=== PATIENT | male | born 1985 | race African-American/Black ===

== ENCOUNTER 2016-12-31 11:06 | Observation (INO) | payer MEDICARE, OTHER ==
[~2016-12-31 11:06] MED LIST: AMLO10 PO; APIX2.5T PO; BUTA1CAP PO; CEPH-460 PO; FERR325T PO; NEPHRO PO; SENS60TA PO
[2016-12-31 11:08] VITALS: BP 174/100; PULSE 93; RESP 15; TEMP 98.2; O2SAT 96
[2016-12-31 15:20] VITALS: BP 166/85; PULSE 82; RESP 18; O2SAT 99
[2016-12-31] MEDS ORDERED: SEVEL800 PO (15:39)
[2016-12-31 15:51] LABS: AUTOMATED NEUTROPHIL # 3.3 TH/MM3 (1.8-7.7); BASOPHIL % 0.9 % (0.0-2.0); EOSINOPHIL # 0.1 TH/MM3 (0-0.4); EOSINOPHIL % 3.2 % (0.0-4.0); HEMO FLAGS DIFF FINAL; LYMPH % 13.2 % (9.0-44.0); LYMPHOCYTE # 0.6 TH/MM3 (1.0-4.8); MEAN CELL VOLUME 91.1 FL (80.0-100.0); MEAN CORPUSCULAR HEMOGLOBIN 29.2 PG (27.0-34.0); MONO % 8.9 % (0.0-8.0); NEUT % 73.8 % (16.0-70.0); PLATELET COUNT 152 TH/MM3 (150-450); RED BLOOD COUNT 3.19 MIL/MM3 (4.50-5.90); WHITE BLOOD COUNT 4.5 TH/MM3 (4.0-11.0)
--- NOTE | 2016-12-31 15:55 | PD ---
HPI Chief Complaint: Chest Pain Time Seen by Provider: 15:47 Travel History International Travel<30 days: No Contact w/Intl Traveler<30days: No Traveled to known affect area: No History of Present Illness HPI 31-year-old male that presents to the ED for evaluation of left-sided chest pain and fluid overload. Per patient he has a history of kidney failure with dialysis on Tuesdays, , Saturdays. Per patient he has not had dialysis since last Friday. Per patient he recently moved to a new apartment and he states that he couldn't make it to his appointments. Per patient he didn 't mention to the dialysis Center that he was having some swelling on his left rest as well as his left arm for concerning and he was told to come to the ED at that time. Per patient he didn't seek any help or treatment for this as he again was moving and he tells me that he was too busy to get evaluated secondary to moving to a new place. He reports that the pain on the left chest is mainly on the area of swelling. Per patient his left breast this "bigger than his 's ". Per patient he also was swelling on the left arm. He states that the pain gets worse when he touches as well as when he takes a deep breath. Per patient he feels a little bit short of breath especially when he lays down flat. He denies any fevers chills or sweats. No recent surgery. He has a fistula that appears to be working on his left arm. He states that his pain is 8 out of 10. He denies any abdominal pain. He is not able to urinate. No bowel movement issues. Multiple allergies to medication. Patient's tells me that his as well as the dialysis Center want him to be admitted. Patient follows with Dr. Bay's successor as apparently Dr. Bay no longer works. All the pain is to the left chest. PFSH Past Medical History Hx Anticoagulant Therapy: Yes Asthma: No Autoimmune Disease: No Anxiety: No Depression: No Heart Rhythm Problems: No Cancer: No Cardiac Catheterization: No Cardiovascular Problems: Yes High Cholesterol: No Chemotherapy: No Chest Pain: Yes Congestive Heart Failure: No COPD: No Diabetes: No Dialysis: Yes Diminished Hearing: No Endocrine: No Genitourinary: Yes Hepatitis: No Hiatal Hernia: Yes Hypertension: Yes Immune Disorder: No Musculoskeletal: No Neurologic: No Psychiatric: No Reproductive: No Respiratory: Yes Radiation Therapy: No Renal Failure: Yes Sickle Cell Disease: No Thyroid Disease: No Tetanus Vaccination: < 5 Years Influenza Vaccination: Yes Past Surgical History Abdominal Surgery: Yes (HERNIA REPAIR WITH MESH LEFT AND RIGHT (2) SURG) AICD: No Arteriovenous Shunt: No Coronary Artery Bypass Graft: No Genitourinary Surgery: Yes (HERNIA REPAIR) Insulin Pump: No Joint Replacement: No Pacemaker: No Other Surgery: Yes (hx of av fistula x5) Family History Family Myocardial Infarction: Yes (GRANDMOTHER) Social History Alcohol Use: Yes (RARELY) Tobacco Use: Yes (SOCIALLY - EVERY COUPLE OF WEEKS) Substance Use: No Allergies-Medications (Allergen,Severity, Reaction): Coded Allergies: Cipro (Verified Allergy, Severe, HIVES, 12/31/16) Kiwi (Verified Allergy, Severe, hives and scratchy throat, 12/31/16) Tramadol (Verified Allergy, Intermediate, RASH, 12/31/16) Morphine (Verified Allergy, Unknown, Itching, AGITATION, 12/31/16) Levaquin (Verified Adverse Reaction, Severe, COLD-LIKE SYMPTOMS, 12/31/16) Tomato (Verified Adverse Reaction, Severe, COLD-LIKE SYMPTOMS, 12/31/16) Reported Meds & Prescriptions Reported Meds & Active Scripts Active Reported Renvela (Sevelamer Carbonate) 800 Mg Tab 800 Mg PO TID Take with meals Nephro-Akshat Rx (Vitamin B Cmplx/Vit C/Folic AC) 1 Tab 1 Tab PO DAILY Ferrous Sulfate 325 Mg Tab 325 Mg PO DAILY Sensipar (Cinacalcet) 60 Mg Tab 60 Mg PO DAILY Eliquis (Apixaban) 2.5 Mg Tab 2.5 Mg PO BID Fioricet (Wltnapswac-Bapuddcbbkfdd-Vgylkgao) 50-300-40 Mg Cap 1 Cap PO Q6HR PRN Norvasc (Amlodipine Besylate) 10 Mg Tab 10 Mg PO DAILY Review of Systems General / Constitutional: No: Fever, Chills, Weight Gain, Weight Loss, Other Eyes: No: Diploplia, Blurred Vision, Photophobia, Drainage, Redness, Foreign Body Sensation, Pain, Tearing, Blind Spots, Visual changes, Blindness, Other HENT: No: Headaches, Vertigo, Lightheadedness, Sore Throat, Rhinitis, Rhinorrhea, Congestion, Nosebleed, Neck Stiffness, Neck Pain, Masses, Gingival Bleeding, Dental Difficulties, Ear Discharge, Earache, Other Cardiovascular: Positive: Chest Pain or Discomfort, Edema, No: Palpitations, Irregular Rhythm, Tachycardia, Diaphoresis, Syncope, Dyspnea on exertion, Varicosities, Cyanosis, Varicosities, Phlebitis, Claudication, Other Respiratory: Positive: Shortness of Breath, No: Cough, Wheezing, Sneezing, Orthopnea, Hemoptysis, Stridor, Night Sweats, Pleuritic Pain, Other Gastrointestinal: No: Nausea, Vomiting, Diarrhea, Abdominal Pain, Hematemesis, Hematochezia, Constipation, Changes in Bowel Habits, Indigestion, Dysphagia, Loss of Appetite, Other Genitourinary: No: Urgency, Frequency, Dysuria, Nocturia, Hematuria, Decreased Urinary Output, Oliguria, Hesitancy, Dribbling, Incontinence, Pelvic Pain, Flank Pain, Dyspareunia, Discharge, Dysmenorrhea, Menorrhagia, Metorrhagia, Vaginal Bleeding, Other Musculoskeletal: Positive: Edema, No: Myalgias, Arthralgias, Limited ROM, Weakness, Cramping, Pain, Atrophy, Other Skin: No Rash, No Itching, No Dryness, No Lumps, No Hives, No Change in Pigmentation, No Change in nails, No Alopecia, No Lesions, No Breast Lumps, No Breast Tenderness, No Breast Swelling, No Other Neurologic: No: Weakness, Dizziness, Syncope, Focal Abnormalities, Coordination Problem, Tremor, Ataxia, Headache, Change in Mentation, Slurred Speech, Paresthesia, Incontinence, Seizures, Sensory Disturbance, Other Psychiatric: No: Anxiety, Depression, Suicidal Ideations, Disorder of Thought, Mood Disorder, Substance Abuse, Homicidal Ideation, Other Endocrine: No: Heat Intolerance, Cold Intolerance, Polyuria, Polydipsia, Other Hematologic/Lymphatic: No: Easy Bruising, Lymph Node Enlargement, Other Physical Exam Narrative GENERAL: SKIN: Warm and dry. HEAD: Atraumatic. Normocephalic. EYES: Pupils equal and round. No scleral icterus. No injection or drainage. ENT: No nasal bleeding or discharge. Mucous membranes pink and moist. Tongue is midline. No blood deviation. NECK: Trachea midline. No JVD. CARDIOVASCULAR: Regular rate and rhythm. No murmurs, S3, S4. RESPIRATORY: No accessory muscle use. Clear to auscultation. Breath sounds equal bilaterally. GASTROINTESTINAL: Abdomen soft, non-tender, nondistended. Hepatic and splenic margins not palpable. MUSCULOSKELETAL: Extremities without clubbing, cyanosis, or edema. No obvious deformities. Full range of motion of the upper and lower extremities bilaterally. Patient does have a fistula to the left arm with a thrill noted. Patient does have very significant edema to the left breast. Very tender to touch especially on the inferior part of the breast but no sign of erythema or purulence. This appears to be more fluid overload. Patient does have 2+ pulses in the upper and lower extremities bilaterally. No lumbar, thoracic, cervical spine tenderness to palpation. NEUROLOGICAL: Awake and alert. No obvious cranial nerve deficits. Motor grossly within normal limits. Five out of 5 muscle strength in the arms and legs. Normal speech. PSYCHIATRIC: Appropriate mood and affect; insight and judgment normal. Data Data Last Documented VS Vital Signs Date Time Temp Pulse Resp B/P Pulse Ox O2 Delivery O2 Flow Rate FiO2 12/31/16 15:20 82 18 166/85 99 Room Air 12/31/16 11:08 98.2 Orders Electrocardiogram (12/31/16 12:10) Electrocardiogram (12/31/16 15:09) Complete Blood Count With Diff (12/31/16 15:09) Comprehensive Metabolic Panel (12/31/16 15:09) Ckmb (Isoenzyme) Profile (12/31/16 15:09) Troponin I (12/31/16 15:09) Prothrombin Time / Inr (Pt) (12/31/16 15:09) Act Partial Throm Time (Ptt) (12/31/16 15:09) Magnesium (Mg) (12/31/16 15:09) Thyroid Stimulating Hormone (12/31/16 15:09) Chest, Single Ap (12/31/16 15:09) Iv Access Insert/Monitor (12/31/16 15:09) Ecg Monitoring (12/31/16 15:09) Oximetry (12/31/16 15:09) Us Arm Venous Doppler (12/31/16 ) Us Breast Unilateral (12/31/16 ) Lactic Acid (12/31/16 16:24) Blood Culture (12/31/16 16:24) Ct Thorax/ Chest W Iv Contrast (12/31/16 ) CKMB (12/31/16 15:25) CKMB% (12/31/16 15:25) Iohexol 350 Inj (Omnipaque 350 Inj) (12/31/16 17:18) Diet Renal (12/31/16 Dinner) Admit Order (Ed Use Only) (12/31/16 18:21) Amlodipine (Norvasc) (01/01/17 09:00) Apixaban (Eliquis) (12/31/16 21:00) Ferrous Sulfate (Ferrous Sulfate) (01/01/17 09:00) Sevelamer (Renvela) (01/01/17 09:00) Vitamin B Cmplx-Vit C-Folic Ac (Nephroca (01/01/17 09:00) (Nf) Eyyxjikgmi-Exxxyeyjndwny-Gehzbucn ( (12/31/16 18:30) (Nf) Cinacalcet (Sensipar) (01/01/17 09:00) Consult Nephrology (12/31/16 ) Labs Laboratory Tests Test 12/31/16 12/31/16 15:25 16:47 White Blood Count 4.5 TH/MM3 Red Blood Count 3.19 MIL/MM3 Hemoglobin 9.3 GM/DL Hematocrit 29.0 % Mean Corpuscular Volume 91.1 FL Mean Corpuscular Hemoglobin 29.2 PG Mean Corpuscular Hemoglobin 32.0 % Concent Red Cell Distribution Width 16.0 % Platelet Count 152 TH/MM3 Mean Platelet Volume 9.3 FL Neutrophils (%) (Auto) 73.8 % Lymphocytes (%) (Auto) 13.2 % Monocytes (%) (Auto) 8.9 % Eosinophils (%) (Auto) 3.2 % Basophils (%) (Auto) 0.9 % Neutrophils # (Auto) 3.3 TH/MM3 Lymphocytes # (Auto) 0.6 TH/MM3 Monocytes # (Auto) 0.4 TH/MM3 Eosinophils # (Auto) 0.1 TH/MM3 Basophils # (Auto) 0.0 TH/MM3 CBC Comment DIFF FINAL Differential Comment Prothrombin Time 10.7 SEC Prothromb Time International 1.0 RATIO Ratio Activated Partial 26.8 SEC Thromboplast Time Sodium Level 141 MEQ/L Potassium Level 4.5 MEQ/L Chloride Level 101 MEQ/L Carbon Dioxide Level 28.5 MEQ/L Anion Gap 12 MEQ/L Blood Urea Nitrogen 34 MG/DL Creatinine 13.58 MG/DL Estimat Glomerular Filtration 5 ML/MIN Rate Random Glucose 91 MG/DL Calcium Level 8.2 MG/DL Magnesium Level 2.6 MG/DL Total Bilirubin 0.5 MG/DL Aspartate Amino Transf 12 U/L (AST/SGOT) Alanine Aminotransferase 18 U/L (ALT/SGPT) Alkaline Phosphatase 133 U/L Total Creatine Kinase 393 U/L Creatine Kinase MB 1.8 NG/ML Creatine Kinase MB % 0.5 % Troponin I 0.03 NG/ML Total Protein 7.0 GM/DL Albumin 3.6 GM/DL Thyroid Stimulating Hormone 0.778 uIU/ML 3rd Gen Lactic Acid Level 0.7 mmol/L MDM Medical Decision Making Medical Screen Exam Complete: Yes Emergency Medical Condition: Yes Medical Record Reviewed: Yes Interpretation(s) CBC & BMP Diagram 12/31/16 15:25 Last Impressions Chest X-Ray 12/31/16 1509 Signed Impressions: Service Date/Time: Saturday, December 31, 2016 15:15 - CONCLUSION: No acute cardiopulmonary disease identified. Elias Lizarraga MD Upper Extremity Ultrasound 12/31/16 0000 Signed Impressions: Service Date/Time: Saturday, December 31, 2016 15:42 - CONCLUSION: 1. Stable examination with nonocclusive thrombus in the left internal jugular vein. 2. Patent AV fistula. 3. Diffuse arm swelling. Tanmay Evans MD Chest CT 12/31/16 0000 Signed Impressions: Service Date/Time: Saturday, December 31, 2016 17:01 - CONCLUSION: 1. Extensive subcutaneous varicosities in the right chest which appear to bypass the axillary and right subclavian veins and eventually drain into the mediastinal venous system. 2. Similarly, stranding in the subcutaneous tissues over the left chest. Again, this could be related to the venous system. 3. Isolated granulomatous type calcification in the superior segment right lower lobe. Minimal bibasilar atelectatic changes. No confluent infiltrate. Tanmay Evans MD Breast Ultrasound 12/31/16 0000 Signed Impressions: Service Date/Time: Saturday, December 31, 2016 16:00 - CONCLUSION: Diffuse edema and likely gynecomastia. No defined abscess identified. Multiple prominent superficial blood vessels. Elias Lizarraga MD Coags WNL LFTs slightly elevated troponin and CKMB negative Differential Diagnosis Fluid overload versus chest pain versus DVT versus kidney disease versus noncompliance versus abscess Narrative Course 31-year-old male that presents to the ED for evaluation of fluid overload and left chest pain. Patient was properly examined and was found to have signs and symptoms which appear to be more consistent with fluid overload secondary to noncompliance with dialysis. Possible infection possible secondary to previous I&D of left breast from abscess formation but is appears to be at this time more related to edema secondary to noncompliance with dialysis. Patient will be checked for blood clots is most of his swelling is only on the left upper extremity as well as the left chest. Case was discussed in my attending Dr. Peters evaluated the patient with me and agrees with plan. Ultrasounds, labs , imaging were ordered. Labs and imaging showed fluid on the left breast but no sign of acute infection or deformity. He does appear to have a lot of venous insufficiency . Case was discussed with from nephrology who agrees to do dialysis today. Wants patient admitted to medicine. Patient was admitted to Dr Wilcox who agreed to admission. Diagnosis Primary Impression: ESRD on dialysis Additional Impression: Left breast mass Admitting Information Admitting Physician Requests: Observation Miki Cooepr Dec 31, 2016 15:55
--- NOTE | 2016-12-31 15:56 | RADRPT ---
EXAM DATE/TIME: 12/31/2016 15:15 [facility] COMPARISON: CHEST SINGLE AP, August 30, 2016, 11:53. INDICATIONS : Chest pain and left breast swelling. MEDICAL HISTORY : Hypertension. Sleep apnea. Hernia, hiatal. Chest pain. Dyspnea. Renal disease. SURGICAL HISTORY : Hernia repair with mesh, left and right. Dialysis. AV fistula. ENCOUNTER: Initial ACUITY: 1 week PAIN SCORE: 9/10 LOCATION: Bilateral chest FINDINGS: Single AP view of the chest. The lungs are clear. Cardiomediastinal silhouette within normal limits. No evidence of pleural effusion or pneumothorax. CONCLUSION: No acute cardiopulmonary disease identified. Elias Lizarraga MD on December 31, 2016 at 15:52 Board Certified Radiologist. This report was verified electronically.
[2016-12-31 16:12] LABS: ANION GAP 12 MEQ/L (5-15); AST (GOT) 12 U/L (15-37); BICARBONATE 28.5 MEQ/L (21.0-32.0); BLOOD UREA NITROGEN 34 MG/DL (7-18); CHLORIDE 101 MEQ/L (98-107); GLOMERULAR FILTRATION RATE 5 ML/MIN (>89); MAGNESIUM 2.6 MG/DL (1.5-2.5); POTASSIUM 4.5 MEQ/L (3.5-5.1); SODIUM (NA) 141 MEQ/L (136-145)
[2016-12-31 16:16] LABS: APTT (PATIENT) 26.8 SEC (24.3-30.1); PROTHROMBIN TIME - PATIENT 10.7 SEC (9.8-11.6)
--- NOTE | 2016-12-31 16:21 | RADRPT ---
EXAM DATE/TIME: 12/31/2016 15:42 [facility] COMPARISON: US ARM LEFT VENOUS DOPPLER, August 30, 2016, 13:07. INDICATIONS : Left arm swelling and pain. MEDICAL HISTORY : Hypertension. Chest pain. Sleep apnea. Bronchitis. Dyspnea. Hiatal hernia. Renal disease and failur e. Clotting problems. Anticoagulant therapy. SURGICAL HISTORY : Hernia repair with mesh left and right (2) surgery. Dialysis. AV fistula. ENCOUNTER: Subsequent ACUITY: 1 week PAIN SCORE: 3/10 LOCATION: Left arm. FINDINGS: Patient has a surgical AVF in the left upper extremity which appears to be patent. As seen previously , nonocclusive thrombus in the left internal jugular vein. Cephalic vein is fully compressible. Trifu rcation tributaries appeared to be patent. Diffuse subcutaneous edema throughout the left upper extre mity. CONCLUSION: 1. Stable examination with nonocclusive thrombus in the left internal jugular vein. 2. Patent AV fistula. 3. Diffuse arm swelling. Tanmay Evans MD on December 31, 2016 at 16:16 Board Certified Radiologist. This report was verified electronically.
[2016-12-31 16:24] LABS: ALKALINE PHOSPHATASE 133 U/L (45-117); ALT (GPT) 18 U/L (12-78); CREATINE KINASE 393 U/L (39-308); TOTAL BILIRUBIN ADULT 0.5 MG/DL (0.2-1.0)
--- NOTE | 2016-12-31 16:38 | RADRPT ---
EXAM DATE/TIME: 12/31/2016 16:00 [facility] COMPARISON: CT PULMONARY ANGIOGRAM, July 27, 2016, 14:29. US BREAST LEFT, August 30, 2016, 13:03. INDICATIONS : Left breast swelling, abscess. MEDICAL HISTORY : Hypertension. Chest pain. Sleep apnea. Bronchitis. Dyspnea. Hiatal hernia. Renal disease and fail ure. Clotting problems. Anticoagulant therapy. SURGICAL HISTORY : Hernia repair with mesh left and right (2) surgery. Dialysis. AV fistula. ENCOUNTER: Subsequent ACUITY: 1 week PAIN SCORE: 3/10 LOCATION: Left breast. FINDINGS: Focus sonographic examination of the left breast was performed in the region of swelling. There is ev idence of diffuse edema. Flame shaped hypodensity in the subareolar region suggests gynecomastia. Mul tiple prominent superficial veins likely represent varices. No rounded organized fluid collection kaylie ntified. Appearance is very similar to the prior ultrasound of July 2016. CONCLUSION: Diffuse edema and likely gynecomastia. No defined abscess identified. Multiple prominent superficial blood vessels. Elias Lizarraga MD on December 31, 2016 at 16:31 Board Certified Radiologist. This report was verified electronically.
[2016-12-31 16:44] LABS: CKMB 1.8 NG/ML (0.5-3.6)
--- NOTE | 2016-12-31 16:53 | PD ---
Physical Exam Date Seen by Provider: Dec 31, 2016 Time Seen by Provider: 16:00 Narrative 31-year-old male with unfortunate history of end-stage renal disease, dialysis dependent, who presents today with complaints of left sided breast swelling and edema to the left arm. The patient states he missed his dialysis today. He is scheduled to have dialysis today and last had dialysis was Friday. He reports that he's had worsening swelling of his less breast over the last several days. Data Data Last Documented VS Vital Signs Date Time Temp Pulse Resp B/P Pulse Ox O2 Delivery O2 Flow Rate FiO2 12/31/16 15:20 82 18 166/85 99 Room Air 12/31/16 11:08 98.2 Orders Electrocardiogram (12/31/16 12:10) Electrocardiogram (12/31/16 15:09) Complete Blood Count With Diff (12/31/16 15:09) Comprehensive Metabolic Panel (12/31/16 15:09) Ckmb (Isoenzyme) Profile (12/31/16 15:09) Troponin I (12/31/16 15:09) Prothrombin Time / Inr (Pt) (12/31/16 15:09) Act Partial Throm Time (Ptt) (12/31/16 15:09) Magnesium (Mg) (12/31/16 15:09) Thyroid Stimulating Hormone (12/31/16 15:09) Chest, Single Ap (12/31/16 15:09) Iv Access Insert/Monitor (12/31/16 15:09) Ecg Monitoring (12/31/16 15:09) Oximetry (12/31/16 15:09) Us Arm Venous Doppler (12/31/16 ) Us Breast Unilateral (12/31/16 ) Lactic Acid (12/31/16 16:24) Blood Culture (12/31/16 16:24) Ct Thorax/ Chest W Iv Contrast (12/31/16 ) CKMB (12/31/16 15:25) CKMB% (12/31/16 15:25) Iohexol 350 Inj (Omnipaque 350 Inj) (12/31/16 17:18) Diet Renal (12/31/16 Dinner) Labs Laboratory Tests Test 12/31/16 12/31/16 15:25 16:47 White Blood Count 4.5 TH/MM3 Red Blood Count 3.19 MIL/MM3 Hemoglobin 9.3 GM/DL Hematocrit 29.0 % Mean Corpuscular Volume 91.1 FL Mean Corpuscular Hemoglobin 29.2 PG Mean Corpuscular Hemoglobin 32.0 % Concent Red Cell Distribution Width 16.0 % Platelet Count 152 TH/MM3 Mean Platelet Volume 9.3 FL Neutrophils (%) (Auto) 73.8 % Lymphocytes (%) (Auto) 13.2 % Monocytes (%) (Auto) 8.9 % Eosinophils (%) (Auto) 3.2 % Basophils (%) (Auto) 0.9 % Neutrophils # (Auto) 3.3 TH/MM3 Lymphocytes # (Auto) 0.6 TH/MM3 Monocytes # (Auto) 0.4 TH/MM3 Eosinophils # (Auto) 0.1 TH/MM3 Basophils # (Auto) 0.0 TH/MM3 CBC Comment DIFF FINAL Differential Comment Prothrombin Time 10.7 SEC Prothromb Time International 1.0 RATIO Ratio Activated Partial 26.8 SEC Thromboplast Time Sodium Level 141 MEQ/L Potassium Level 4.5 MEQ/L Chloride Level 101 MEQ/L Carbon Dioxide Level 28.5 MEQ/L Anion Gap 12 MEQ/L Blood Urea Nitrogen 34 MG/DL Creatinine 13.58 MG/DL Estimat Glomerular Filtration 5 ML/MIN Rate Random Glucose 91 MG/DL Calcium Level 8.2 MG/DL Magnesium Level 2.6 MG/DL Total Bilirubin 0.5 MG/DL Aspartate Amino Transf 12 U/L (AST/SGOT) Alanine Aminotransferase 18 U/L (ALT/SGPT) Alkaline Phosphatase 133 U/L Total Creatine Kinase 393 U/L Creatine Kinase MB 1.8 NG/ML Creatine Kinase MB % 0.5 % Troponin I 0.03 NG/ML Total Protein 7.0 GM/DL Albumin 3.6 GM/DL Thyroid Stimulating Hormone 0.778 uIU/ML 3rd Gen Lactic Acid Level 0.7 mmol/L [facility] Medical Record Reviewed: Yes Supervised Visit with LAVON: Yes Differential Diagnosis Fluid overload versus abscess versus gynecomastia Narrative Course 31-year-old male history of renal failure, dialysis 20, presents today with complaints of missing dialysis. Patient also complaining of severe swelling of his left breast and general malaise. Patient reports low-grade fever although he is afebrile here. White count is below 5000. The patient does have a creatinine of greater than 13. Ultrasound of left breast shows gynecomastia with no obvious fluid collection. Ultrasound of the left upper extremity shows no DVT. CT scan of the chest shows no evidence of abscess or findings concerning of abscess. 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 There is also some stranding in the left upper chest which appears to be similar to that on the right. The patient be admitted to the medicine service. Dr. Riggins, patient's hand cloth folder, has been called and will be a insurance healthcare consultant in [place] for his dialysis. There is a call out to the [facility] Hospitalist team for admission. Diagnosis Primary Impression: End stage renal disease Additional Impressions: missed dialysis left breast swelling/gynecomastia Generalized weakness Jose Peters MD Dec 31, 2016 16:53
[2016-12-31] MEDS ORDERED: IOHEXOL 350 MG/ML 10 ML VIAL (for RAD DIAG) IV ONE (17:18)
--- NOTE | 2016-12-31 17:38 | RADRPT ---
EXAM DATE/TIME: 12/31/2016 17:01 [facility] COMPARISON: No previous studies available for comparison. INDICATIONS : Left breast swelling. evaluate for mass. IV CONTRAST: 67 cc Omnipaque 350 (iohexol) IV RADIATION DOSE: 6.07 CTDIvol (mGy) MEDICAL HISTORY : Cardiovascular disease. Hypertension. Renal failure, chronic.Dialysis SURGICAL HISTORY : Hernia ENCOUNTER: Initial ACUITY: 1 week PAIN SCALE: 5/10 LOCATION: Left chest TECHNIQUE: Volumetric scanning of the chest was performed. Using automated exposure control and adjustment of t he mA and/or kV according to patient size, radiation dose was kept as low as reasonably achievable to obtain optimal diagnostic quality images. FINDINGS: LUNGS: Isolated granulomas the calcification in a lesly-fissural distribution of the superior segment of the right lower lobe. Minimal bibasilar atelectatic changes. Lungs are otherwise clear. PLEURA: There is no pleural thickening or pleural effusion. MEDIASTINUM: The heart and great vessels demonstrate no acute abnormality. There is no mediastinal or hilar lymph adenopathy. AXILLAE: Borderline prominent bilateral axillary lymph nodes may be reactive. SKELETAL: Within normal limits for patient age. MISCELLANEOUS: Extensive varicosities are seen in the subcutaneous distribution over the right chest which appear to drain into the mediastinal vessels. There is stranding in the subcutaneous tissues overlying the lef t chest. Both kidneys are atrophic with renal cortical cysts and parenchymal calcification. CONCLUSION: 1. Extensive subcutaneous varicosities in the right chest which appear to bypass the axillary and rig ht subclavian veins and eventually drain into the mediastinal venous system. 2. Similarly, stranding in the subcutaneous tissues over the left chest. Again, this could be related to the venous system. 3. Isolated granulomatous type calcification in the superior segment right lower lobe. Minimal bibasi lar atelectatic changes. No confluent infiltrate. Tanmay Evans MD on December 31, 2016 at 17:27 Board Certified Radiologist. This report was verified electronically.
[2016-12-31] MEDS ORDERED: ACETAMIN 325 MG/BUTALBITAL 50 MG/CAFFEINE 40 MG TAB PO PRN (18:30)
[2016-12-31] MEDS ORDERED: SODIUM CHLORIDE 0.9% FLUSH 10 ML FLUSH IV FLUSH PRN ×2 (18:30→20:00)
[2016-12-31] MEDS ORDERED: ONDANSETRON HCL 4 MG/2 ML VIAL IVP PRN (18:30)
[2016-12-31] MEDS ORDERED: NALOXONE HCL 0.4 MG/ML AMP IV PRN (18:30)
[2016-12-31] MEDS ORDERED: ACETAMINOPHEN 325 MG TAB PO PRN ×2 (18:30→20:00)
[2016-12-31] MEDS ORDERED: BISACODYL 10 MG SUPP PR PRN (18:30)
--- NOTE | 2016-12-31 18:34 | HHI.HP ---
[facility] No Primary Care Physician Admission Diagnosis ESRD needing dialysis, left breast swelling Diagnoses: Chief Complaint: ESRD on HD needs dialysis and left breast swelling. Travel History International Travel<30 Days: No Contact w/Intl Traveler <30 Da: No Traveled to Known Affected Are: No History of Present Illness This is a pleasant 31 y/o Male who came to ER with left sided chest pain and fluid overload, he has ESRD on Hemodialysis on Friday, and Friday, he skipped dialysis last Friday, has swelling on his left breast with some arm discomfort, was told to come to ER for evaluation, davis pain on his left chest area, pain got worse when he has a deep breath, He denies any fevers chills or sweats. No recent surgery. He has a fistula that appears to be working on his left arm. He states that his pain is 8 out of 10. He denies any abdominal pain. He is not able to urinate. No bowel movement issues. Multiple allergies to medication. Patient's tells me that his as well as the dialysis Center want him to be admitted. as per patient who was seen while on hemodialysis his Left breast growth during the last one week, has changes in calor, is indurated, very painful on palpation. Past Family Social History Past Medical History Anticoagulant therapy CAD ESRD on HD on , and Hiatal Hernia Hypertension BPH Past Surgical History Hernia repair with mesh left and right AV fistula x 5 Reported Medications Reported Meds & Active Scripts Active Reported Renvela (Sevelamer Carbonate) 800 Mg Tab 800 Mg PO TID Take with meals Nephro-Akshat Rx (Vitamin B Cmplx/Vit C/Folic AC) 1 Tab 1 Tab PO DAILY Ferrous Sulfate 325 Mg Tab 325 Mg PO DAILY Sensipar (Cinacalcet) 60 Mg Tab 60 Mg PO DAILY Eliquis (Apixaban) 2.5 Mg Tab 2.5 Mg PO BID Fioricet (Hcwyiivevq-Bxlzhzkfrqcod-Hxtgzfla) 50-300-40 Mg Cap 1 Cap PO Q6HR PRN Norvasc (Amlodipine Besylate) 10 Mg Tab 10 Mg PO DAILY Allergies: Coded Allergies: Cipro (Verified Allergy, Severe, HIVES, 12/31/16) Kiwi (Verified Allergy, Severe, hives and scratchy throat, 12/31/16) Tramadol (Verified Allergy, Intermediate, RASH, 12/31/16) Morphine (Verified Allergy, Unknown, Itching, AGITATION, 12/31/16) Levaquin (Verified Adverse Reaction, Severe, COLD-LIKE SYMPTOMS, 12/31/16) Tomato (Verified Adverse Reaction, Severe, COLD-LIKE SYMPTOMS, 12/31/16) Active Ordered Medications Current Medications Medications (Trade) Dose Ordered Sig/Stephenie Route Start Time Stop Time Status Last Admin (Norvasc) 10 mg DAILY PO 01/01/17 09:00 UNV (Eliquis) 2.5 mg BID PO 12/31/16 21:00 UNV (Ferrous Sulfate) 325 mg DAILY PO 01/01/17 09:00 UNV (Renvela) 800 mg TID PO 01/01/17 09:00 UNV (Nephrocaps) 1 cap DAILY PO 01/01/17 09:00 UNV Non-Formulary Medication 1 cap Q6HR PRN PO 12/31/16 18:30 UNV Non-Formulary Medication 60 mg DAILY PO 01/01/17 09:00 UNV Family History Mother with Hypertension, Father with Hypertension. Social History drinks alcohol occasional and also smokes occasional Physical Exam Vital Signs Vital Signs Date Time Temp Pulse Resp B/P Pulse Ox O2 Delivery O2 Flow Rate FiO2 12/31/16 15:20 82 18 166/85 99 Room Air 12/31/16 15:20 81 18 99 Room Air 12/31/16 11:08 98.2 93 15 174/100 96 Physical Exam GENERAL: Morbid Obesity, no acute distress. SKIN: Left breast with changes in calor, severe edema. and painful on palpation. HEAD: Atraumatic. Normocephalic. EYES: Pupils equal and round. No scleral icterus. No injection or drainage. ENT: No nasal bleeding or discharge. Mucous membranes pink and moist. Tongue is midline. No blood deviation. NECK: Trachea midline. No JVD. CARDIOVASCULAR: Regular rate and rhythm. No murmurs, S3, S4. RESPIRATORY: No accessory muscle use. Clear to auscultation. Breath sounds equal bilaterally. GASTROINTESTINAL: Abdomen soft, non-tender, nondistended. Hepatic and splenic margins not palpable. MUSCULOSKELETAL: Extremities without clubbing, cyanosis, or edema. No obvious deformities. Full range of motion of the upper and lower extremities bilaterally. Patient does have a fistula to the left arm with a thrill noted. Patient does have very significant edema to the left breast. Very tender to touch especially on the inferior part of the breast but no sign of erythema or purulence. This appears to be more fluid overload. Patient does have 2+ pulses in the upper and lower extremities bilaterally. No lumbar, thoracic, cervical spine tenderness to palpation. NEUROLOGICAL: Awake and alert. No obvious cranial nerve deficits. Motor grossly within normal limits. Five out of 5 muscle strength in the arms and legs. Normal speech. PSYCHIATRIC: Appropriate mood and affect; insight and judgment normal. Laboratory Laboratory Tests Test 12/31/16 12/31/16 15:25 16:47 White Blood Count 4.5 Red Blood Count 3.19 Hemoglobin 9.3 Hematocrit 29.0 Mean Corpuscular Volume 91.1 Mean Corpuscular Hemoglobin 29.2 Mean Corpuscular Hemoglobin 32.0 Concent Red Cell Distribution Width 16.0 Platelet Count 152 Mean Platelet Volume 9.3 Neutrophils (%) (Auto) 73.8 Lymphocytes (%) (Auto) 13.2 Monocytes (%) (Auto) 8.9 Eosinophils (%) (Auto) 3.2 Basophils (%) (Auto) 0.9 Neutrophils # (Auto) 3.3 Lymphocytes # (Auto) 0.6 Monocytes # (Auto) 0.4 Eosinophils # (Auto) 0.1 Basophils # (Auto) 0.0 CBC Comment DIFF FINAL Differential Comment Prothrombin Time 10.7 Prothromb Time International 1.0 Ratio Activated Partial 26.8 Thromboplast Time Sodium Level 141 Potassium Level 4.5 Chloride Level 101 Carbon Dioxide Level 28.5 Anion Gap 12 Blood Urea Nitrogen 34 Creatinine 13.58 Estimat Glomerular Filtration 5 Rate Random Glucose 91 Calcium Level 8.2 Magnesium Level 2.6 Total Bilirubin 0.5 Aspartate Amino Transf 12 (AST/SGOT) Alanine Aminotransferase 18 (ALT/SGPT) Alkaline Phosphatase 133 Total Creatine Kinase 393 Creatine Kinase MB 1.8 Creatine Kinase MB % 0.5 Troponin I 0.03 Total Protein 7.0 Albumin 3.6 Thyroid Stimulating Hormone 0.778 3rd Gen Lactic Acid Level 0.7 Date/Time Procedure Status Source Growth 12/31/16 16:45 Aerobic Blood Culture Received Blood Peripheral Pending 12/31/16 16:45 Anaerobic Blood Culture Received Blood Peripheral Pending Result Diagram: 12/31/16 1525 12/31/16 1525 Imaging Last Impressions Chest X-Ray 12/31/16 1509 Signed Impressions: Service Date/Time: Saturday, December 31, 2016 15:15 - CONCLUSION: No acute cardiopulmonary disease identified. Elias Lizarraga MD Upper Extremity Ultrasound 12/31/16 0000 Signed Impressions: Service Date/Time: Saturday, December 31, 2016 15:42 - CONCLUSION: 1. Stable examination with nonocclusive thrombus in the left internal jugular vein. 2. Patent AV fistula. 3. Diffuse arm swelling. Tanmay Evans MD Chest CT 12/31/16 0000 Signed Impressions: Service Date/Time: Saturday, December 31, 2016 17:01 - CONCLUSION: 1. Extensive subcutaneous varicosities in the right chest which appear to bypass the axillary and right subclavian veins and eventually drain into the mediastinal venous system. 2. Similarly, stranding in the subcutaneous tissues over the left chest. Again, this could be related to the venous system. 3. Isolated granulomatous type calcification in the superior segment right lower lobe. Minimal bibasilar atelectatic changes. No confluent infiltrate. Tanmay Evans MD Breast Ultrasound 12/31/16 0000 Signed Impressions: Service Date/Time: Saturday, December 31, 2016 16:00 - CONCLUSION: Diffuse edema and likely gynecomastia. No defined abscess identified. Multiple prominent superficial blood vessels. Elias Lizarraga MD Assessment and Plan Assessment and Plan 1. ESRD on HD on , and Friday he missed HD on Friday, at this time receiving HD by Doctor Vaishnavi 2. CAD on chronic anticoagulation 3. Hiatal hernia history 4. Hypertension controlled continue Home medicines. 5. Non compliance patient. 6. Left breast Cellulitis until not demonstrated something else, started on Vancomycin and following. blood cultures asked. and ID specialist consult. DVT prophylaxis with Apixaban Code Status Full code Discussed Condition With Patient and ER specialist. Physician Certification 2 Midnight Certification Type: Admission for Inpatient Services Order for Inpatient Services The services are ordered in accordance with Medicare regulations or non- Medicare payer requirements, as applicable. In the case of services not specified as inpatient-only, they are appropriately provided as inpatient services in accordance with the 2-midnight benchmark. Estimated LOS (days): 1 days is the estimated time the patient will need to remain in the hospital, assuming treatment plan goals are met and no additional complications. Post-Hospital Plan: Home Ezio Godinez MD Dec 31, 2016 18:34 Ezio Godinez MD Dec 31, 2016 18:34
[2016-12-31] MEDS ORDERED: VANCOMYCIN INJ 1,000 MG in SODIUM CHLOR 0.9% 250 ML INJ 250 ML IV ONE (19:30)
[2016-12-31] MEDS ORDERED: Vancomycin Consult Pharmacy 1 EA OTHER SCH (19:30)
[2016-12-31] MEDS ORDERED: GENTAMICIN SULFATE (DIALYSIS USE ONLY) 20 MG/2 ML VIAL OTHER PRN (20:00)
[2016-12-31] MEDS ORDERED: HEPARIN SODIUM - IV 10,000 UNITS/10 ML VIAL OTHER PRN (20:00)
[2016-12-31] MEDS ORDERED: SODIUM CHLOR 0.9% 1000 ML IV PRN ×2 (20:00)
[2016-12-31] MEDS ORDERED: HEPARIN SODIUM - IV 10,000 UNITS/10 ML VIAL IV FLUSH PRN (20:00)
[2016-12-31] MEDS ORDERED: EPOETIN ALFA 2,000 UNITS/ML VIAL SQ PRN (20:00)
[2016-12-31] MEDS ORDERED: NITROGLYCERIN 0.4 MG SL 25 TABS/BTL SL PRN (20:00)
[2016-12-31] MEDS ORDERED: ALBUMIN HUMAN 25% 25 GM/100 ML BAGP IV PRN (20:00)
[2016-12-31] MEDS ORDERED: GELATIN 12 MM/7 MM FOAM TOPICAL PRN (20:00)
[2016-12-31] MEDS ORDERED: NS 250 ML IV PRN (20:00)
[2016-12-31] MEDS ORDERED: ONDANSETRON HCL 4 MG/2 ML VIAL IV PRN (20:00)
[2016-12-31] MEDS ORDERED: MANNITOL 12.5 GM/50 ML VIAL IV PRN (20:00)
[2016-12-31] MEDS ORDERED: diphenhydrAMINE HCL 25 MG CAP PO PRN (20:00)
[2016-12-31] MEDS ORDERED: cloNIDine HCL 0.1 MG TAB PO PRN (20:00)
[2016-12-31] MEDS ORDERED: HEPARIN SODIUM - SQ 10,000 UNITS/ML VIAL SQ SCH (20:00)
[2016-12-31] MEDS ORDERED: APIXABAN 2.5 MG TABLET PO SCH (21:00)
[2016-12-31] MEDS ORDERED: SODIUM CHLORIDE 0.9% FLUSH 10 ML FLUSH IV FLUSH SCH (21:00)
[2016-12-31] MEDS ORDERED: VANCOMYCIN 1,500 MG/NS 500 ML IV ONE ×2 (21:00)
[2016-12-31] MEDS ORDERED: DOCUSATE SODIUM 100 MG CAP PO SCH (21:00)
[2016-12-31 22:04] VITALS: BP 138/85; PULSE 84; RESP 16; O2SAT 100
--- NOTE | 2016-12-31 22:41 | EKG ---
Date Performed: 12/31/2016 Time Performed: 12:15:57 PTAGE: 31 years EKG: Sinus rhythm LOW QRS VOLTAGE IN PRECORDIAL LEADS LEFT ANTERIOR FASCICULAR BLOCK ABNORMAL ECG Compared to prior tr acing no significant change DOCTOR: Eric Rosenthal Interpretating Date/Time 12/31/2016 22:39:43
[2017-01-01 00:13] VITALS: BP 147/95; PULSE 100; RESP 20; TEMP 97.4; O2SAT 99
[2017-01-01 00:35] VITALS: PULSE 85
[2017-01-01 04:50] VITALS: BP 150/100; PULSE 86; RESP 20; TEMP 98.1; O2SAT 95
[2017-01-01 06:21] LABS: AUTOMATED NEUTROPHIL # 2.8 TH/MM3 (1.8-7.7); EOSINOPHIL # 0.2 TH/MM3 (0-0.4); EOSINOPHIL % 3.7 % (0.0-4.0); HEMATOCRIT 28.8 % (39.0-51.0); HEMO FLAGS DIFF FINAL; LYMPH % 13.4 % (9.0-44.0); LYMPHOCYTE # 0.5 TH/MM3 (1.0-4.8); MEAN CELL VOLUME 90.8 FL (80.0-100.0); MEAN CORPUSCULAR HEMOGLOBIN 29.5 PG (27.0-34.0); MEAN CORPUSCULAR HGB CONC 32.4 % (32.0-36.0); MONO % 12.2 % (0.0-8.0); NEUT % 69.7 % (16.0-70.0); PLATELET COUNT 144 TH/MM3 (150-450); RED BLOOD COUNT 3.17 MIL/MM3 (4.50-5.90); RED CELL DISTRIBUTION WIDTH 16.5 % (11.6-17.2); WHITE BLOOD COUNT 4.1 TH/MM3 (4.0-11.0)
[2017-01-01 06:44] LABS: BICARBONATE 31.9 MEQ/L (21.0-32.0); INDIRECT BILIRUBIN 0.4 MG/DL (0.0-0.8); POTASSIUM 4.1 MEQ/L (3.5-5.1); TOTAL BILIRUBIN ADULT 0.5 MG/DL (0.2-1.0)
[2017-01-01 07:43] VITALS: BP 165/90; PULSE 78; RESP 19; TEMP 97.9; O2SAT 94
[2017-01-01] MEDS ORDERED: FERROUS SULFATE 325 MG (65 MG ELEMENTAL IRON) TAB PO SCH (09:00)
[2017-01-01] MEDS ORDERED: SEVELAMER CARBONATE 800 MG TAB PO SCH (09:00)
[2017-01-01] MEDS ORDERED: VITAMIN B CMPLX/VITC/FOLIC AC CAP PO SCH (09:00)
[2017-01-01] MEDS ORDERED: CINACALCET HYDROCHLORIDE 30 MG TAB PO SCH (09:00)
--- NOTE | 2017-01-01 09:37 | PD.CONS ---
History of Present Illness Service Infectious disease Consult Requested By Dr Elvin Wilcox Reason for Consult Evaluate patient with left breast cellulitis Primary Care Physician No Primary Care Physician Diagnoses: History of Present Illness Patient seen and examined. Records reviewed. Patient is a 31-year-old male, with known ESRD, on hemodialysis Friday, , and Friday, hospital complaining of discomfort on his last chest with swelling, as well as discomfort in his left upper extremity. Patient is been moving, and he skipped his hemodialysis last Friday. He has been having problem with swelling on his left chest, but more recently he is been having pain, and noted increased swelling. Patient has had problem on and off with swelling on that left chest. In reviewing [facility], there was an ultrasound done on his left upper extremity last July 2016 which showed some nonocclusive thrombosis in his left IJ, and a patent left upper extremity AV fistula. A breast ultrasound was also done at that time which showed some tissue edema over his left breast, and some findings suggestive of gynecomastia. Patient stated that his had on and off problem on the left breast , but has not had any complete evaluation. This most recent swelling has only been present for the last 1 week. He denies any fever or chills or sweats. He has not had any respiratory complaint. He had an episode of severe nausea all day on the day of admission, but no charlene vomiting. There has been no abdominal pain or diarrhea. Patient has very minimal urine output. 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 Denies any recent trauma, or any puncture or insect bite over his left chest. Since admission he has not been febrile. His WBC is normal. He continues to have pain over his left breast. Patient had hemodialysis yesterday. Infectious disease consultation has been requested today for further evaluation and treatment. Review of Systems Constitutional: DENIES: Fever, Chills, Change in appetite Eyes: DENIES: Eye pain Ears, nose, mouth, throat: DENIES: Nasal discharge, Oral lesions, Throat pain, Ear Pain, Sinus Pain Respiratory: DENIES: Cough, Shortness of breath Cardiovascular: COMPLAINS OF: Chest pain, DENIES: Palpitations, Syncope Gastrointestinal: COMPLAINS OF: Nausea, DENIES: Abdominal pain, Diarrhea, Vomiting, Difficulty Swallowing Musculoskeletal: DENIES: Joint pain, Joint Swelling Integumentary: DENIES: Pruritus, Rash Hematologic/lymphatic: DENIES: Bruising Immunologic/allergic: DENIES: Urticaria Neurologic: DENIES: Headache, Localized weakness Psychiatric: DENIES: Hallucinations Past Family Social History Allergies: Coded Allergies: Cipro (Verified Allergy, Severe, HIVES, 12/31/16) Kiwi (Verified Allergy, Severe, hives and scratchy throat, 12/31/16) Tramadol (Verified Allergy, Intermediate, RASH, 12/31/16) Morphine (Verified Allergy, Unknown, Itching, AGITATION, 12/31/16) Levaquin (Verified Adverse Reaction, Severe, COLD-LIKE SYMPTOMS, 12/31/16) Tomato (Verified Adverse Reaction, Severe, COLD-LIKE SYMPTOMS, 12/31/16) Past Medical History ESRD on HD T--Fri HTN Anemia of chronic disease Secondary Hyperparathyroidism Hx of DVT, formerly on Coumadin Metabolic Bone Disorder Findings of L gynecomastia on breast US 07/2016 Past Surgical History Multiple AVF creation surgeries L inguinal hernia repair Active Ordered Medications Tylenol Fioricet Albumin Norvasc Eliquis Dulcolax Sensipar Clonidine Benadryl Colace Epogen Ferrous sulfate Heparin Mannitol with hemodialysis SL NTG Zofran Renvela Vancomycin IV given December 31 Nephrocaps Social History , has 2 kids Occasionally smokes Occasionally drink alcohol No drugs Physical Exam Vital Signs Vital Signs Date Time Temp Pulse Resp B/P Pulse Ox O2 Delivery O2 Flow Rate FiO2 01/01/17 07:43 97.9 78 19 165/90 94 01/01/17 04:50 98.1 86 20 150/100 95 01/01/17 00:35 85 01/01/17 00:13 97.4 100 20 147/95 99 12/31/16 22:04 84 16 138/85 100 Room Air 12/31/16 15:20 82 18 166/85 99 Room Air 12/31/16 15:20 81 18 99 Room Air 12/31/16 11:08 98.2 93 15 174/100 96 Physical Exam GENERAL: This is a well-nourished, well-developed male, awake and alert, in no apparent distress. SKIN: Warm and dry, no generalized rash or ecchymosis. HEAD: Atraumatic. Normocephalic. No temporal or scalp tenderness. EYES: [place] conjunctiva. Pupils equal round and reactive. Extraocular motions intact. No scleral icterus. No injection or drainage. ENT: Nose without bleeding, or purulent drainage. Moist oral mucosa. Throat without erythema, tonsillar hypertrophy or exudate. Uvula midline. Airway patent. NECK: Trachea midline. No JVD or lymphadenopathy. Supple, nontender, no meningeal signs. Has some swelling on L side of his neck, with induration or erythema CARDIOVASCULAR: Regular rate and rhythm without murmurs, gallops, or rubs. RESPIRATORY: Clear to auscultation. Breath sounds equal bilaterally. No wheezes , rales, or rhonchi. There are large varicosities on his R chest going to his R shoulder and upper arm. BREAST LEFT: There is swelling on his L breast with indurated skin and mild erythema around his L areola, with tender breast tissue. NO nipple changes or discharge noted. The swelling extends to his upper chest into his L upper arm. GASTROINTESTINAL: Abdomen soft, non-tender, nondistended. Bowel sounds are present and normoactive. No hepato-splenomegaly, or palpable masses. No guarding. MUSCULOSKELETAL: Lower extremities without clubbing, cyanosis, or edema. No joint tenderness, effusion, or edema noted. No calf tenderness. Negative Homans sign bilaterally. RUE: healed scar R forearm where he had his previous AVF, varicosities in his upper arm/shoulder area. LUE aneurysmal dil of his LUE AVF with no redness or induration noted NEUROLOGICAL: Awake and alert. Cranial nerves II through XII intact. Motor and sensory grossly within normal limits. Five out of 5 muscle strength in all muscle groups. Normal speech. PSYCH: Appropriate affect, calm and cooperative LINE: PIV with no evidence of infection Laboratory Laboratory Tests Test 12/31/16 12/31/16 01/01/17 15:25 16:47 05:40 White Blood Count 4.5 4.1 Red Blood Count 3.19 3.17 Hemoglobin 9.3 9.3 Hematocrit 29.0 28.8 Mean Corpuscular Volume 91.1 90.8 Mean Corpuscular Hemoglobin 29.2 29.5 Mean Corpuscular Hemoglobin 32.0 32.4 Concent Red Cell Distribution Width 16.0 16.5 Platelet Count 152 144 Mean Platelet Volume 9.3 9.3 Neutrophils (%) (Auto) 73.8 69.7 Lymphocytes (%) (Auto) 13.2 13.4 Monocytes (%) (Auto) 8.9 12.2 Eosinophils (%) (Auto) 3.2 3.7 Basophils (%) (Auto) 0.9 1.0 Neutrophils # (Auto) 3.3 2.8 Lymphocytes # (Auto) 0.6 0.5 Monocytes # (Auto) 0.4 0.5 Eosinophils # (Auto) 0.1 0.2 Basophils # (Auto) 0.0 0.0 CBC Comment DIFF FINAL DIFF FINAL Differential Comment Prothrombin Time 10.7 Prothromb Time International 1.0 Ratio Activated Partial 26.8 Thromboplast Time Sodium Level 141 141 Potassium Level 4.5 4.1 Chloride Level 101 100 Carbon Dioxide Level 28.5 31.9 Anion Gap 12 9 Blood Urea Nitrogen 34 28 Creatinine 13.58 11.02 Estimat Glomerular Filtration 5 7 Rate Random Glucose 91 93 Calcium Level 8.2 8.6 Magnesium Level 2.6 Total Bilirubin 0.5 0.5 Aspartate Amino Transf 12 6 (AST/SGOT) Alanine Aminotransferase 18 15 (ALT/SGPT) Alkaline Phosphatase 133 131 Total Creatine Kinase 393 Creatine Kinase MB 1.8 Creatine Kinase MB % 0.5 Troponin I 0.03 Total Protein 7.0 6.7 Albumin 3.6 3.4 Thyroid Stimulating Hormone 0.778 3rd Gen Lactic Acid Level 0.7 Direct Bilirubin 0.1 Indirect Bilirubin 0.4 Lipase 192 Date/Time Procedure Status Source Growth 12/31/16 16:45 Aerobic Blood Culture Received Blood Peripheral Pending 12/31/16 16:45 Anaerobic Blood Culture Received Blood Peripheral Pending Result Diagram: 01/01/17 0540 01/01/17 0540 Imaging RADIOLOGY STUDIES/FILMS REVIEWED Chest X-Ray 12/31/16 1509 Signed Impressions: Service Date/Time: Saturday, December 31, 2016 15:15 - CONCLUSION: No acute cardiopulmonary disease identified. Elias Lizarraga MD Upper Extremity Ultrasound 12/31/16 0000 Signed Impressions: Service Date/Time: Saturday, December 31, 2016 15:42 - CONCLUSION: 1. Stable examination with nonocclusive thrombus in the left internal jugular vein. 2. Patent AV fistula. 3. Diffuse arm swelling. Tanmay Evans MD Chest CT 12/31/16 0000 Signed Impressions: Service Date/Time: Saturday, December 31, 2016 17:01 - CONCLUSION: 1. Extensive subcutaneous varicosities in the right chest which appear to bypass the axillary and right subclavian veins and eventually drain into the mediastinal venous system. 2. Similarly, stranding in the subcutaneous tissues over the left chest. Again, this could be related to the venous system. 3. Isolated granulomatous type calcification in the superior segment right lower lobe. Minimal bibasilar atelectatic changes. No confluent infiltrate. Tanmay Evans MD Breast Ultrasound 12/31/16 0000 Signed Impressions: Service Date/Time: Saturday, December 31, 2016 16:00 - CONCLUSION: Diffuse edema and likely gynecomastia. No defined abscess identified. Multiple prominent superficial blood vessels. Elias Lizarraga MD Assessment and Plan Assessment and Plan IMPRESSION Recurrent swelling L chest, has non-occlusive thrombus LIJ, no thrombus in his LUE AVF - has very mild erythema around areola, ?mild cellulitis Has findings og gynecomastia on his L breast ESRD on HD T RECOMMENDATION Got one dose Vanco yesterdat Check level today and redose I spoke wit radiology, to fully evaluate foutflow from his AVF, will need fistulogram - will D/W renal ?evaluate his gynecomastia - not sure if this has any factor on his recurrent L chest swelling I will follow along with you Thank you for this consultation Discussed Condition With Explained plan to the patient Vania Terrell MD Jan 01, 2017 09:37
--- NOTE | 2017-01-01 11:44 | HHI.PR ---
Subjective Remarks This is a pleasant 31 y/o Male who came to ER with left sided chest pain and fluid overload, he has ESRD on Hemodialysis on Friday, and Friday, he skipped dialysis last Friday, has swelling on his left breast with some arm discomfort, was told to come to ER for evaluation, davis pain on his left chest area, pain got worse when he has a deep breath, He denies any fevers chills or sweats. No recent surgery. He has a fistula that appears to be working on his left arm. He states that his pain is 8 out of 10. He denies any abdominal pain. He is not able to urinate. No bowel movement issues. Multiple allergies to medication. Patient's tells me that his as well as the dialysis Center want him to be admitted. as per patient who was seen while on hemodialysis his Left breast growth during the last one week, has changes in calor, is indurated, very painful on palpation. I was called by nurse to tell me the patient left the hospital did not signed any document, left with IV line in place. he was not seen by me today. Objective Vital Signs Date Time Temp Pulse Resp B/P Pulse Ox O2 Delivery O2 Flow Rate FiO2 01/01/17 07:43 97.9 78 19 165/90 94 01/01/17 04:50 98.1 86 20 150/100 95 01/01/17 00:35 85 01/01/17 00:13 97.4 100 20 147/95 99 12/31/16 22:04 84 16 138/85 100 Room Air 12/31/16 15:20 82 18 166/85 99 Room Air 12/31/16 15:20 81 18 99 Room Air I/O 12/31/16 12/31/16 12/31/16 01/01/17 01/01/17 01/01/17 07:00 15:00 23:00 07:00 15:00 23:00 Output Total 6000 ml Balance -6000 ml Output Hemodialysis 6000 ml Result Diagram: 01/01/17 0540 01/01/17 0540 Imaging Last Impressions Chest X-Ray 12/31/16 1509 Signed Impressions: Service Date/Time: Saturday, December 31, 2016 15:15 - CONCLUSION: No acute cardiopulmonary disease identified. Elias Lizarraga MD Upper Extremity Ultrasound 12/31/16 0000 Signed Impressions: Service Date/Time: Saturday, December 31, 2016 15:42 - CONCLUSION: 1. Stable examination with nonocclusive thrombus in the left internal jugular vein. 2. Patent AV fistula. 3. Diffuse arm swelling. Tanmay Evans MD Chest CT 12/31/16 0000 Signed Impressions: Service Date/Time: Saturday, December 31, 2016 17:01 - CONCLUSION: 1. Extensive subcutaneous varicosities in the right chest which appear to bypass the axillary and right subclavian veins and eventually drain into the mediastinal venous system. 2. Similarly, stranding in the subcutaneous tissues over the left chest. Again, this could be related to the venous system. 3. Isolated granulomatous type calcification in the superior segment right lower lobe. Minimal bibasilar atelectatic changes. No confluent infiltrate. Tanmay Evans MD Breast Ultrasound 12/31/16 0000 Signed Impressions: Service Date/Time: Saturday, December 31, 2016 16:00 - CONCLUSION: Diffuse edema and likely gynecomastia. No defined abscess identified. Multiple prominent superficial blood vessels. Elias Lizarraga MD Procedures Hemodialysis Other Results Laboratory Tests Test 12/31/16 12/31/16 01/01/17 15:25 16:47 05:40 Prothrombin Time 10.7 SEC Prothromb Time International 1.0 RATIO Ratio Activated Partial 26.8 SEC Thromboplast Time Magnesium Level 2.6 MG/DL Total Creatine Kinase 393 U/L Creatine Kinase MB 1.8 NG/ML Creatine Kinase MB % 0.5 % Troponin I 0.03 NG/ML Thyroid Stimulating Hormone 0.778 uIU/ML 3rd Gen Lactic Acid Level 0.7 mmol/L White Blood Count 4.1 TH/MM3 Red Blood Count 3.17 MIL/MM3 Hemoglobin 9.3 GM/DL Hematocrit 28.8 % Mean Corpuscular Volume 90.8 FL Mean Corpuscular Hemoglobin 29.5 PG Mean Corpuscular Hemoglobin 32.4 % Concent Red Cell Distribution Width 16.5 % Platelet Count 144 TH/MM3 Mean Platelet Volume 9.3 FL Neutrophils (%) (Auto) 69.7 % Lymphocytes (%) (Auto) 13.4 % Monocytes (%) (Auto) 12.2 % Eosinophils (%) (Auto) 3.7 % Basophils (%) (Auto) 1.0 % Neutrophils # (Auto) 2.8 TH/MM3 Lymphocytes # (Auto) 0.5 TH/MM3 Monocytes # (Auto) 0.5 TH/MM3 Eosinophils # (Auto) 0.2 TH/MM3 Basophils # (Auto) 0.0 TH/MM3 CBC Comment DIFF FINAL Differential Comment Sodium Level 141 MEQ/L Potassium Level 4.1 MEQ/L Chloride Level 100 MEQ/L Carbon Dioxide Level 31.9 MEQ/L Anion Gap 9 MEQ/L Blood Urea Nitrogen 28 MG/DL Creatinine 11.02 MG/DL Estimat Glomerular Filtration 7 ML/MIN Rate Random Glucose 93 MG/DL Calcium Level 8.6 MG/DL Total Bilirubin 0.5 MG/DL Direct Bilirubin 0.1 MG/DL Indirect Bilirubin 0.4 MG/DL Aspartate Amino Transf 6 U/L (AST/SGOT) Alanine Aminotransferase 15 U/L (ALT/SGPT) Alkaline Phosphatase 131 U/L Total Protein 6.7 GM/DL Albumin 3.4 GM/DL Lipase 192 U/L Random Vancomycin Level 24.6 COMMENT Objective Remarks I was called by nurse to tell me the patient left the hospital did not signed any document, left with IV line in place. he was not seen by me today. Medications and IVs I was called by nurse to tell me the patient left the hospital did not signed any document, left with IV line in place. he was not seen by me today. A/P Assessment and Plan 1. ESRD on HD on , and Friday he missed HD on Friday, at this time receiving HD by Doctor Vaishnavi 2. CAD on chronic anticoagulation 3. Hiatal hernia history 4. Hypertension controlled continue Home medicines. 5. Severe Non compliance patient. 6. Left breast Cellulitis until not demonstrated something else, started on Vancomycin and following. blood cultures asked. and ID specialist consult. as per doctor Xander recommended to radiology to evaluate AVF with Fistulogram. DVT prophylaxis with Apixaban Code Status Full code I was called by nurse to tell me the patient left the hospital did not signed any document, left with IV line in place. he was not seen by me today. Discharge Planning Left without advise. Ezio Godinez MD Jan 01, 2017 11:44
== END 2017-01-01 10:30 | disposition left against medical advice (07) ==
LOC: NEPE 11:06 → NEDA 18:23 → NEPGCP 23:07
PROVIDERS: ADMIT Internal Medicine; ATTEND Internal Medicine
DX: I12.0 Hypertensive chronic kidney disease with stage 5 chronic kidney disease or end stage renal disease (principal); N18.6 End stage renal disease; Z99.2 Dependence on renal dialysis; E87.70 Fluid overload, unspecified; M79.89 Other specified soft tissue disorders; R06.02 Shortness of breath; Z79.01 Long term (current) use of anticoagulants; K44.9 Diaphragmatic hernia without obstruction or gangrene; Z72.0 Tobacco use; Z79.899 Other long term (current) drug therapy; Z91.15 Patient's noncompliance with renal dialysis; I87.2 Venous insufficiency (chronic) (peripheral); R53.1 Weakness; I25.10 Atherosclerotic heart disease of native coronary artery without angina pectoris; N40.0 Benign prostatic hyperplasia without lower urinary tract symptoms; N61.0 Mastitis without abscess; R11.0 Nausea; Z86.718 Personal history of other venous thrombosis and embolism; I44.4 Left anterior fascicular block
CPT/HCPCS: 71010; 71260; 76642; 80048; 80053; 80076; 80202; 82550; 82552; 83605; 83690; 83735; 84443; 84484; 85025; 85610; 85730; 87040; 93005; 93971; 96374; 99285; G0257; G0378; J2405; J3370; J7030; J7040; Q4081; Q9967; 90935

== ENCOUNTER 2017-02-18 09:06 | Emergency (ER) | payer MEDICARE, OTHER ==
[~2017-02-18 09:06] MED LIST changes: -CEPH-460 PO; +SEVEL800 PO
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
[2017-02-18] MEDS ORDERED: AUGM875T PO (10:13)
[2017-02-18] MEDS ORDERED: TYLETAB34 PO (10:13)
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
[2017-02-18 10:23] VITALS: BP 157/88; TEMP 98
== END 2017-02-18 10:24 | disposition home or self-care (01) ==
LOC: NEPC 09:06
DX: K11.21 Acute sialoadenitis (principal); R55 Syncope and collapse; I12.0 Hypertensive chronic kidney disease with stage 5 chronic kidney disease or end stage renal disease; N18.6 End stage renal disease; Z99.2 Dependence on renal dialysis; Z79.01 Long term (current) use of anticoagulants; Z72.0 Tobacco use
CPT/HCPCS: 99283

== ENCOUNTER 2017-05-26 23:15 | Emergency (ER) | payer MEDICARE, OTHER ==
[~2017-05-26] VITALS: Ht 172.7 cm; Wt 94.0 kg
[~2017-05-26 23:15] MED LIST changes: +AUGM875T PO; +TYLETAB34 PO
[2017-05-26 23:17] VITALS: BP 164/94; PULSE 99; RESP 16; TEMP 99.7; O2SAT 97
[2017-05-26] MEDS ORDERED: TETANUS/DIPHTHERIA TOXOID ADULT 0.5 ML VIAL IM ONE (23:30)
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
[2017-05-26] MEDS ORDERED: ONDANSETRON ODT 4 MG TAB PO ONE (23:45)
[2017-05-26] MEDS ORDERED: ACETAMINOPHEN 325 MG TAB PO ONE (23:45)
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
[2017-05-27 00:03] LABS: INTERNATIONAL NORMALIZED RATIO 0.9 RATIO; PROTHROMBIN TIME - PATIENT 10.4 SEC (9.8-11.6)
== END 2017-05-27 00:53 | disposition home or self-care (01) ==
LOC: NEPK 23:15
DX: S00.83XA Contusion of other part of head, initial encounter (principal); Y04.2XXA Assault by strike against or bumped into by another person, initial encounter; N18.6 End stage renal disease; Z99.2 Dependence on renal dialysis
CPT/HCPCS: 70450; 70486; 72125; 85610; 90714; 96372